=== PATIENT | male | born 1955 | race African-American/Black ===

== ENCOUNTER 2020-01-16 08:48 | Outpatient (CLI) | payer OTHER ==
[~2020-01-16 08:48] MED LIST: CETIRIZINE1 MG/1 ML PO; FUROSEMIDE20 MG PO; HYGROTON PO; Intestinex CAP PO; MICRO-K 1010 MEQ PO; NIFE60TA3 PO; NeurRONTin 400MG CAP PO; PANTOPRAZOLE SO40 MG PO; SPIRONOLACTONE25 MG PO; TOPROL XL50 M1 PO; TRANDATE300 MG PO; XARELTO20 MG PO; XOPENEX HFA15 GM IH; ZESTRIL40 M1 PO
== END 2020-01-16 09:01 | disposition home or self-care (01) ==
LOC: RX STUDY 08:48
PROVIDERS: ATTEND Otolaryngology Plastic Surgery within the Head & Neck
DX: R13.19 Other dysphagia (principal)

== ENCOUNTER 2021-03-14 08:02 | Outpatient (CLI) | payer OTHER | END 2021-03-14 08:11 | disposition home or self-care (01) | LOC: RX STUDY 08:02 | PROVIDERS: ATTEND Internal Medicine Gastroenterology | DX: R13.19 Other dysphagia (principal) ==

== ENCOUNTER 2023-07-12 09:33 | Emergency (ER) | payer OTHER ==
[~2023-07-12] VITALS: Ht 182.9 cm; Wt 145.1 kg
[2023-07-12] MEDS ORDERED: LISINOPRIL40 MG PO (09:49)
[2023-07-12] MEDS ORDERED: NIFEDIPINE20 MG (09:50)
[2023-07-12] MEDS ORDERED: TENORMIN100 M1 PO (09:50)
[2023-07-12] MEDS ORDERED: 0.9 % SODIUM CHLORIDE 1,000 ML IV STA (10:59)
[2023-07-12] MEDS ORDERED: HYOSCYAMINE SULFATE 0.125 MG TAB.SUBL SL ONE (11:00)
[2023-07-12 12:25] LABS: HEMATOCRIT 41.8 % (39.0-48.0); HEMOGLOBIN 13.7 g/dL (13-16.00); MEAN CELL VOLUME 87.4 fL (80.0-100.00); MEAN CORPUSCULAR HEMOGLOBIN 28.7 pg (27.00-32.0); MEAN CORPUSCULAR HGB CONC 32.8 g/dl (32.0-36.0); PLATELET COUNT 261 K/uL (150-450); RED BLOOD COUNT 4.78 M/uL (4.00-6.00)
[2023-07-12 12:51] LABS: ALBUMIN 3.5 gm/dL (3.4-5.0); BILIRUBIN TOTAL 0.62 mg/dL (0.3-1.2); BILIRUBIN,CONJUGATED 0.15 mg/dL (0.0-0.2); BILIRUBIN,UNCONJUGATED 0.47 mg/dL (0.0-0.6); CALCIUM 9.6 mg/dL (8.5-10.1); CREATININE SERUM 1.71 mg/dL (0.70-1.30); GFR 40.38; GLOBULINA 4.7 G/DL (2.4-3.5); POTASSIUM 4.27 mEq/L (3.5-5.1); TOTAL PROTEIN 8.2 gm/dL (6.4-8.2)
[2023-07-12 12:59] LABS: URINE APPEARANCE Clear; URINE BILIRRUBIN Negative (NEGATIVE); URINE BLOOD Negative; URINE COLOR Yellow; URINE GLUCOSE Negative (NEGATIVE); URINE LEUKOCYTE Negative; URINE NITRATE Negative; URINE PROTEIN Negative (NEGATIVE); URINE UROBILINOGEN 0.2 E.U./dl
[2023-07-12 13:02] LABS: URINE EPITHELIAL CELLS 4.1 uL (0.0-38.8); URINE RBC 6.1 uL (0.0-20.8); URINE WBC 6.7 uL (0.0-23.2)
[2023-07-12] MEDS ORDERED: CIPROFLOXACIN IN 5 % DEXTROSE 400 MG/200 ML PIGGYBAG IV STA (16:38)
[2023-07-12] MEDS ORDERED: METRONIDAZOLE/SODIUM CHLORIDE 500 MG/100 ML PIGGYBACK IV STA (16:38)
[2023-07-12] MEDS ORDERED: METRONIDAZOLE500 MG PO (18:17)
[2023-07-12] MEDS ORDERED: INTESTINEX680 M1 PO (18:17)
[2023-07-12] MEDS ORDERED: CIPRO500 MG PO (18:17)
[2023-07-12] MEDS ORDERED: PEPCID AC20 MG PO (18:17)
== END 2023-07-12 20:08 | disposition home or self-care (01) ==
LOC: ER 09:34
PROVIDERS: General Practice
DX: K57.32 Diverticulitis of large intestine without perforation or abscess without bleeding (principal); R19.7 Diarrhea, unspecified; I10 Essential (primary) hypertension; K76.0 Fatty (change of) liver, not elsewhere classified